=== PATIENT | male | born 1995 | race African-American/Black ===

== ENCOUNTER 2016-03-16 16:23 | Emergency (ER) | payer BC, OTHER ==
[~2016-03-16] VITALS: Ht 188 cm; Wt 82.0 kg
[~2016-03-16 16:23] MED LIST: ISON100T2 PO
[2016-03-16 16:25] VITALS: BP 132/78; PULSE 75; RESP 12; TEMP 98; O2SAT 100
[2016-03-16] MEDS ORDERED: CYCL1TAB29 PO (17:35)
[2016-03-16] MEDS ORDERED: IBUP800T23 PO (17:35)
--- NOTE | 2016-03-16 17:35 | PD ---
HPI Chief Complaint: Back/ Neck Pain or Injury Time Seen by Provider: 17:00 Travel History International Travel<30 days: No Contact w/Intl Traveler<30days: No Traveled to known affect area: No History of Present Illness HPI Patient is a 20-year-old male who presents emergency for evaluation of low back pain. 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 He denies any numbness or tingling, or weakness in lower extremities. He further denies any bladder or bowel incontinence. He states his pain is a 510, it's worse with activity, improved with rest. He describes as aching and cramping. PFSH Past Medical History Diminished Hearing: No Medical other: Yes (completed treatment for tuberculosis) Pneumonia: Yes Past Surgical History Thoracic Surgery: Yes (chest tube right lung, empyema ) Social History Alcohol Use: No Tobacco Use: No Substance Use: No Allergies-Medications (Allergen,Severity, Reaction): Coded Allergies: No Known Allergies (Unverified , 03/16/16) Reported Meds & Prescriptions Reported Meds & Active Scripts Active No Active Prescriptions or Reported Medications Review of Systems Except as stated in HPI: all other systems reviewed are Neg Musculoskeletal: Positive: Myalgias, Cramping, Pain Physical Exam Narrative GENERAL: Developed, well-nourished, alert male. Resting comfortably in no acute distress. Feed Management Advisor at bedside. SKIN: Warm and dry. HEAD: Atraumatic. Normocephalic. EYES: Pupils equal and round. No scleral icterus. No injection or drainage. ENT: No nasal bleeding or discharge. Mucous membranes pink and moist. NECK: Trachea midline. No JVD. CARDIOVASCULAR: Regular rate and rhythm. No murmur appreciated. RESPIRATORY: No accessory muscle use. Clear to auscultation. Breath sounds equal bilaterally. GASTROINTESTINAL: Abdomen soft, non-tender, nondistended. Hepatic and splenic margins not palpable. MUSCULOSKELETAL: No obvious deformities. No clubbing. No cyanosis. No edema. Tenderness to palpation in paraspinal musculature in the lumbar region on the left side. No spinal tenderness noted in thoracic, lumbar, cervical area. NEUROLOGICAL: Awake and alert. No obvious cranial nerve deficits. Motor grossly within normal limits. Normal speech. PSYCHIATRIC: Appropriate mood and affect; insight and judgment normal. Data Data Last Documented VS Vital Signs Date Time Temp Pulse Resp B/P Pulse Ox O2 Delivery O2 Flow Rate FiO2 03/16/16 16:25 98.0 75 12 132/78 100 Room Air [facility] Medical Decision Making Medical Screen Exam Complete: Yes Emergency Medical Condition: Yes Interpretation(s) Vital Signs Date Time Temp Pulse Resp B/P Pulse Ox O2 Delivery O2 Flow Rate FiO2 03/16/16 16:25 98.0 75 12 132/78 100 Room Air Differential Diagnosis Sprain versus strain versus spasm versus discogenic pain versus other Narrative Course Patient is a 20-year-old male who presents emergency department for evaluation of low back pain. Pain started today while he was at work, physical examination appears most consistent with musculoskeletal strain, spasm. Patient is neurologically intact, his vital signs are stable. Patient will be given ibuprofen and Flexeril. He is encouraged to maintain range of motion exercises, apply warm moist heat to affected area, and avoid bed rest. He is encouraged to follow-up with his primary care provider or employee med. 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 Patient advised to return to emergency department for any new or worsening symptoms. Patient is stable for discharge. Diagnosis Primary Impression: Strain of lumbar paraspinal muscle Qualified Code: S39.012A - Strain of lumbar paraspinal muscle, initial encounter Additional Impression: Spasm of lumbar paraspinous muscle Referrals: Primary Care Physician Patient Instructions: General Instructions, Muscle Spasm (ED), Muscle Strain ( DC) Departure Forms: Tests/Procedures, Work Release Enter return to work date: Mar 19, 2016 Special Instructions: Work with full duties long as he is not taking Flexeril. Additional Instructions: Follow-up with your primary doctor Take medications as directed Do not drive or operate heavy machinery while taking Flexeril as this may cause you to feel drowsy Return to emergency department for any new or worsening symptoms Med/Other Pt SpecificInfo: Prescription(s) given Scripts Cyclobenzaprine (Flexeril)10 Mg Tab10 Mg PO TID PRN (MUSCLE SPASM) 10 Days Ref 0 Prov:Vilma Amador 03/16/16 Ibuprofen 800 Mg [id number] Mg PO Q8H PRN (Pain/Inflammation) #60 TAB Ref 0 Prov:Vilma Amador 03/16/16 Disposition: 01 DISCHARGE HOME Condition: Stable Vilma Amador Mar 16, 2016 17:35
== END 2016-03-16 17:50 | disposition home or self-care (01) ==
LOC: NEPB 16:23
DX: S39.012A Strain of muscle, fascia and tendon of lower back, initial encounter (principal); X50.9XXA Other and unspecified overexertion or strenuous movements or postures, initial encounter; Y92.811 Bus as the place of occurrence of the external cause; Y99.0 Civilian activity done for income or pay
CPT/HCPCS: 99283

== ENCOUNTER 2017-05-06 10:54 | Emergency (ER) | payer OTHER ==
[~2017-05-06] VITALS: Ht 188 cm; Wt 80.4 kg
[~2017-05-06 10:54] MED LIST changes: +CYCL10TA PO; +IBUP1TAB7 PO; -ISON100T2 PO
[2017-05-06 10:57] VITALS: BP 126/60; PULSE 70; RESP 16; TEMP 98.1; O2SAT 98
--- NOTE | 2017-05-06 11:38 | PD ---
HPI Chief Complaint: Head Injury Time Seen by Provider: 11:20 Travel History International Travel<30 days: No Contact w/Intl Traveler<30days: No Traveled to known affect area: No History of Present Illness HPI This is a 21-year-old male here for evaluation of head injury day. He reports that while walking up the steps into a [employer] bus he struck his head on the ceiling. He remained standing during the event. No loss of consciousness. He denies headache or visual changes. Mild upper back pain, No midline neck pain. No paresthesia or weakness of extremities. He is not anticoagulated. Symptom severity is mild. No aggravating or alleviating factors. PFSH Past Medical History Medical History: Denies Significant Hx Diminished Hearing: No Respiratory: Yes (exposue to tb , on INH) Pneumonia: Yes Tetanus Vaccination: Unknown Past Surgical History Thoracic Surgery: Yes (chest tube right lung, empyema ) Social History Alcohol Use: No Tobacco Use: No Substance Use: No Allergies-Medications (Allergen,Severity, Reaction): Coded Allergies: No Known Allergies (Unverified Adverse Reaction, Unknown, 05/06/17) Reported Meds & Prescriptions Reported Meds & Active Scripts Active No Active Prescriptions or Reported Medications Review of Systems Except as stated in HPI: all other systems reviewed are Neg General / Constitutional: No: Fever Eyes: No: Visual changes HENT: No: Headaches Cardiovascular: No: Chest Pain or Discomfort Respiratory: No: Shortness of Breath Gastrointestinal: No: Abdominal Pain Genitourinary: No: Dysuria Musculoskeletal: No: Pain Skin: No Rash Physical Exam Narrative GENERAL: Alert and well-appearing 21-year-old male SKIN: Warm and dry. HEAD: Normocephalic. Mild TTP to mid scalp/crown. No scalp hematoma EYES: Pupils equal, round, reactive to light. EOMs intact. No photophobia NECK: Supple. No cervical Spine tenderness. +ttp bilateral trapezius muscles CARDIOVASCULAR: Regular rate and rhythm RESPIRATORY: Breath sounds equal bilaterally. No accessory muscle use. GASTROINTESTINAL: Abdomen soft, non-tender, nondistended. MUSCULOSKELETAL: No cyanosis, or edema. Normal strength and sensation. BACK: Nontender without obvious deformity. No CVA tenderness. NEUROLOGICAL: Awake and alert. Cranial nerves II through XII intact. Motor and sensory grossly within normal limits. Five out of 5 muscle strength in all muscle groups. Normal speech. Data Data Last Documented VS Vital Signs Date Time Temp Pulse Resp B/P (MAP) Pulse Ox O2 Delivery O2 Flow Rate FiO2 05/06/17 10:57 98.1 70 16 126/60 (82) 98 [facility] Medical Decision Making Medical Screen Exam Complete: Yes Emergency Medical Condition: Yes Differential Diagnosis Scalp contusion, ICH unlikely, cervical strain, cervical fracture unlikely Narrative Course This is a 21-year-old male here for evaluation of mild headache injury sustained at work today. He has a normal neurologic exam. No cervical midline tenderness. he'll be treated for mild upper back/neck strain and mild closed head injury. Imaging is not warranted, patient agrees to this. Return precautions were discussed. Diagnosis Primary Impression: Neck strain Qualified Codes: S16.1XXA - Strain of muscle, fascia and tendon at neck level , initial encounter Additional Impression: Scalp contusion Qualified Codes: S00.03XA - Contusion of scalp, initial encounter Referrals: Primary Care Physician Additional Instructions: Tylenol or ibuprofen as needed for discomfort. Ice and/or heat for neck discomfort Avoid heavy lifting or strenuous activity Return if he developed new or worsening symptoms. Follow-up with her primary doctor. Scripts No Active Prescriptions or Reported Meds Disposition: 01 DISCHARGE HOME Condition: Stable Rosi Clements May 06, 2017 11:38
== END 2017-05-06 12:08 | disposition home or self-care (01) ==
LOC: PHEFT 10:54
DX: S16.1XXA Strain of muscle, fascia and tendon at neck level, initial encounter (principal); S00.03XA Contusion of scalp, initial encounter; W22.09XA Striking against other stationary object, initial encounter; Y92.811 Bus as the place of occurrence of the external cause
CPT/HCPCS: 99282